=== PATIENT | male | born 1990 | race Caucasian/White ===

== ENCOUNTER 2020-12-07 13:07 | Emergency (ER) | payer MEDICAID, SELFPAY | END 2020-12-07 13:15 | disposition left against medical advice (07) | LOC: HO.ED 14:05 | PROVIDERS: Emergency Provider Emergency Medicine | DX: R10.9 Unspecified abdominal pain (principal) ==

== ENCOUNTER 2020-12-12 11:36 | Emergency (ER) | payer MEDICAID, SELFPAY ==
[2020-12-12 11:40] VITALS: BP 144/80; PULSE 74; RESP 18; TEMP 36.8; O2SAT 97; BMI 20.9
[2020-12-12 12:36] LABS: Glucose Urine UA NEG (NEG); Leukocyte Esterase Urine NEG (NEG); Nitrite Urine NEG (NEG); PH 5.5 (5.0-8.0); Specific Gravity - Urine >= 1.030 (1.005-1.025); Urine Blood NEG (NEG); Urine Ketones 5 MG/DL (NEG); Urine Protein TRACE MG/DL (NEG-TRACE)
[2020-12-12 12:37] LABS: Appearance Urine HAZY; Color Urine DARK YELLOW
--- NOTE | 2020-12-12 12:40 | PC.NURSE ---
refusing blood work, gave ua spec.
[2020-12-12 12:54] LABS: Barbiturates, Urine Not Detected (Not Detect); Benzodiazepines Screen Urine Not Detected (Not Detect); Cannabinoid Screen Urine Not Detected (Not Detect); Cocaine Screen Urine POSITIVE (Not Detect); Opiate Screen Urine POSITIVE (Not Detect); Phencyclidine Screen Urine Not Detected (Not Detect)
[2020-12-12 12:55] LABS: Amphetamine Screen Urine Not Detected (Not Detect)
--- NOTE | 2020-12-12 13:07 | ED_ITS ---
HPI - Psych General Chief Complaint: Psychiatric Symptoms Stated Complaint: MEDICATION Time Seen by Provider: 12/12/20 12:07 Source: patient Mode of arrival: ambulatory Limitations: no limitations History of Present Illness HPI Narrative: 30-year-old male who is currently actively using heroin and cocaine last use this morning at 09:00 presenting to the ED with request for Suboxone reports that he has been on in the past and it worked well. He reports that he does not want to go to an actual detox Center he wants to do his own detox at home due to he has done it in the past and has worked well. He denies any SI/HI/auditory visualizations thoughts of self-injury. Has a safe place to go home to. Denies any other symptoms complaints or concerns at this time. MD complaint: substance abuse Related Data Previous Rx's Medication Instructions Recorded buprenorphine-naloxone [Suboxone] 1 film BUCCAL DAILY 4 Days #4 ea 12/12/20 Allergies Allergy/AdvReac Type Severity Reaction Status Date / Time No Known Allergies Allergy Verified 12/12/20 12:08 Review of Systems Review of Systems: Constitutional: No Fever, No Chills ENT/Mouth: No Ear Pain, No Nasal Congestion, No sore throat Eyes: No Eye Pain, No Swelling, No Redness Cardiovascular: No Chest Pain, No SOB Respiratory: No Cough, No Sputum, No Dyspnea Gastrointestinal: No ingestions, No Nausea, No Vomiting, No Diarrhea, No Hematochezia, No Melena Genitourinary: No Dysuria, No Urinary Frequency, No Hematuria Musculoskeletal: No Myalgias Skin: No Skin Lesions, No rash Neuro: No Weakness, No Numbness, No Paresthesias, No Dizziness, No Headache Psych: + Substance abuse, No Anxiety, No Depression, No SI, No No thoughts of self injury, No HI, No AVH, Heme/Lymph: No Lymphadenopathy Endocrine: No Polyuria, No Polydipsia Yes all other systems are reviewed and are negative [facility] Past Medical History Attestation statement: The following information was validated with the patient. Medical History Drug abuse and dependence Social History Social History Advance Directives: No Advance Directives Information Provided: No Physical Exam Vital Signs: Vital Signs: Last Vital Signs Temp 98.2 F 12/12/20 11:40 Pulse 74 12/12/20 11:40 Resp 18 12/12/20 11:40 BP 144/80 H 12/12/20 11:40 Pulse Ox 97 12/12/20 11:40 Body Mass Index 20.9 vital signs have been reviewed as normal and appeared to be correct. Blood pressure hypertensive at 144/80. Heart rate normal. Respiration rate normal. Temperature normal. Oxygen saturation normal. Appearance: Alert. Oriented X3. No acute distress. Head: Normal external exam. Normocephalic. Atraumatic. No Lindsey signs noted. No raccoon eyes noted Eyes: PERRLA. EOMI. Conjunctiva and sclera normal. Eyelids normal. ENT: EAC normal. TM's Normal. Pharynx normal. Uvula midline. Moist mucous membranes. No trismus noted. No drooling noted. No muffled voice noted. Neck: Normal inspection. Neck supple. FROM. No adenopathy. Thyroid Normal. No meningeal signs. No neck mass noted. CVS: Normal heart rate and rhythm. Heart sound normal. No murmurs noted. Pulses normal throughout. Respiratory: No respiratory distress. Painless inspiration. Breath sounds normal. No wheezes/rales/rhonchi noted. Chest nontender. No accessory muscle usage noted or decreased air movement noted. Abdomen: Soft and nontender. Bowel sounds normal in all 4 quadrants. No distention noted. No organomegaly noted. No visible injury noted. Back: No CVA tenderness. Full range of motion noted. Skin: Skin warm and dry. Normal skin color. Normal skin turgor. No rashes/lesions/lacerations noted. Extremities: No lower extremity edema. Extremities exhibit normal range of motion. Extremities nontender. Neuro: Oriented X 3. No motor deficit. No sensory deficit. Reflexes normal. Psych: Appearance grossly normal, well-kept, mental status normal, speech and movement normal, speech clear, normal affect/mood. Is cooperative. Normal thought process. Normal thought content. Normal good insight. Judgment good. Course Course Course Narrative: 30-year-old male presenting to the ED for Suboxone. Last use this morning at 09:00 therefore we are giving him a script to go home with and he understands to not start the medication until Monday morning and he will follow up with Cathy Dhaliwal in the clinic. He was seen also by Shane from the Care Team will DC home with the Suboxone script and instructions return if any new or worsening symptoms to follow up with primary care provider and reappoint to continue his Suboxone patient understands agrees with this plan. [facility] - Psych Medical Records Attestation: I reviewed the patient's medical records. Lab Data Attestation: I reviewed the patient's lab results. Labs: Lab Results 12/12/20 12/12/20 Range/Units 12:27 12:27 Urine Color DARK YELLOW Urine Appearance HAZY Urine pH 5.5 (5.0-8.0) Ur Specific [place] >= 1.030 H (1.005-1.025) Urine Protein TRACE (NEG-TRACE) MG/DL Urine Glucose (UA) NEG (NEG) MG/DL Urine Ketones 5 (NEG) MG/DL Urine Blood NEG (NEG) Urine Nitrite NEG (NEG) Ur Leukocyte Esterase NEG (NEG) Urine Opiates Screen POSITIVE H (Not Detect) Ur Barbiturates Screen Not Detected (Not Detect) Ur Phencyclidine Scrn Not Detected (Not Detect) Ur Amphetamines Screen Not Detected (Not Detect) U Benzodiazepines Scrn Not Detected (Not Detect) Urine Cocaine Screen POSITIVE H (Not Detect) U Marijuana (THC) Screen Not Detected (Not Detect) Discharge Plan Discharge Clinical Impression: Active substance abuse, Desire for detoxification Patient Disposition: Home, Self-Care Instructions: Buprenorphine/Naloxone (Into the mouth) Prescriptions: New buprenorphine-naloxone [Suboxone] 8-2 mg film 1 film buccal DAILY 4 Days Qty: 4 RF: 0 Referrals: Cathy Dhaliwal, [employer]PERATOR [Nurse Practitioner] - 2 days Print Language: Ugandan
--- NOTE | 2020-12-12 13:10 | MHC.RECOVSUP ---
Recovery Support note: Patient is a 30 year old Chinese speaking male who presented to [facility] ED seeking help for his opioid use disorder. Patient reports last using this morning around 9AM and states he has been using heroin and cocaine daily for about 3 years and he is ready to enter recovery. Patient reports he is interested in getting Suboxone and that he has been on Suboxone before and found it helpful. Discussed medication initiation with patient and he reports he is comfortable starting the medication at home. Provided patient with information on how to initiate buprenorphine. This freelance writer provided patient with information on the [facility] and instructed him to come Monday for an intake if he is unable to get into [facility] in [place] which is closer to his home and is a clinic that he has previously gone to. Patient acknowledged. Discussed early recovery with patient. Patient reports he lives with his grandparents and that they are supportive. Offered patient information on outpatient supports and patient declined. Patient reports his main concern is getting through withdrawal and that he is confident he will be able to maintain sobriety with the supports he has in place. Discussed with patient how Suboxone will reduce cravings and that it may be advantageous to stay on the medication for a period of time. Patient acknowleged. Patient provided with contact information for this freelance writer in the event that he has any additional questions or concerns. Discussed case with patient's ED provider. Plan for patient to discharge with a prescription to bridge him until he can get established with a Suboxone clinic.
== END 2020-12-12 13:12 | disposition home or self-care (01) ==
PROVIDERS: Physician Assistant Medical; Emergency Provider Emergency Medicine
DX: F11.10 Opioid abuse, uncomplicated (principal); Z71.51 Drug abuse counseling and surveillance of drug abuser; Z79.899 Other long term (current) drug therapy
CPT/HCPCS: 80307; 81003; 99283

== ENCOUNTER 2021-02-01 14:41 | Emergency (ER) | payer MEDICAID, SELFPAY ==
[2021-02-01 14:45] VITALS: BP 138/83; PULSE 90; RESP 18; TEMP 36.6; O2SAT 96; BMI 18.8
== END 2021-02-01 15:28 | disposition left against medical advice (07) ==
PROVIDERS: Emergency Provider Emergency Medicine
DX: F11.23 Opioid dependence with withdrawal (principal)
CPT/HCPCS: 99281; 99282

== ENCOUNTER 2021-03-19 15:27 | Emergency (ER) | payer MEDICAID, SELFPAY | END 2021-03-19 16:15 | disposition left against medical advice (07) | PROVIDERS: Emergency Provider Emergency Medicine | DX: K08.89 Other specified disorders of teeth and supporting structures (principal) ==